=== PATIENT | male | born 1955 | race Caucasian/White ===

== ENCOUNTER 2019-06-16 16:28 | Emergency (ER) | payer MEDICARE, BC, OTHER ==
[2019-06-16 16:59] LABS: Urine Appearance Clear; Urine Bilirubin Negative (Negative); Urine Blood Negative (Negative); Urine Color Yellow; Urine Glucose Negative (Negative); Urine Ketones Negative (Negative); Urine Nitrite Negative (Negative); Urine Protein Negative (Negative); Urine Urobilinogen Negative (Negative)
[2019-06-16 18:58] LABS: ABS Basophils 0.1 10^3/ul (0-0.2); ABS Eosinophils 0.4 10^3/ul (0-0.6); ABS Monocytes 0.9 10^3/ul (0-0.8); ABS Neutrophils 6.5 10^3/ul (1.5-7.7); Eosinophil % 4.1 %; Hematocrit 46 % (42-52); Hemoglobin 15.8 g/dL (14.0-18.0); Lymphocyte % 20.3 %; Mean Corpuscular HGB Conc 35 g/dL (31-36); Mean Corpuscular Hemoglobin 30 pg (27-31); Mean Corpuscular Volume 88 fL (80-94); Platelet Count 260 10^3/uL (150-450); Red Blood Count 5.21 10^6 /uL (4.18-5.48); Red Cell Distribution Width 14 % (10-15); White Blood Count 9.9 10^3/uL (3.5-10.8)
--- NOTE | 2019-06-16 19:02 | ED ---
Neurological HPI - HPI Summary HPI Summary: 63 year old male presents to the ED with pain in his legs starting weeks ago but made worse today. The pain starts in his hips and radiates down to his toes , and is rated a 6/10 in severity. He also reports difficulty with urination, incontinence, paresthesia in his fingertips, a pain that radiates down his forearm that "feels like a razor blade sliding down his arm". Pt denies any fever, chills, erythema of eyes, sore throat, CP, SOB, cough, abdominal pain, N/ V, dysuria, hematuria, edema, rash, or dizziness. He takes 1 percocet a day for the pain. He has a history of spinal surgery, including a neck surgery at [facility] by Dr. Eli and back surgery at [facility] by Dr. Elise. - History of Current Complaint Chief Complaint: EDNeurologicalDeficit Stated Complaint: NUMBNESS PER PT Time Seen by Provider: 06/16/19 18:01 Hx Obtained From: Patient Onset/Duration: Started weeks ago, Still Present, Worse Since - today Timing: Constant Onset Severity: Mild Current Severity: Severe Neurological Deficit Location: RLE, LLE Pain Intensity: 6 Pain Scale Used: 0-10 Numeric Character: Sharp, Paresthesia Aggravating: Nothing Alleviating: Nothing Associated Signs and Symptoms: Positive: Pain. Negative: Dizziness, Nausea/ Vomiting, Fever, Chest Pain - Allergy/Home Medications Allergies/Adverse Reactions: Allergies Allergy/AdvReac Type Severity Reaction Status Date / Time epinephrine Allergy Tachycardia Verified 05/10/19 14:44 Penicillins Allergy Unknown Verified 05/10/19 14:44 Reaction Details PMH/Surg Hx/FS Hx/Imm Hx Endocrine/Hematology History: Reports: Hx Anticoagulant Therapy - coumadin Denies: Hx Diabetes Cardiovascular History: Reports: Other Cardiovascular Problems/Disorders - AFIB Denies: Hx Hypertension, Hx Pacemaker/ICD Respiratory History: Denies: Hx Asthma Comment Only: Other Respiratory Problems/Disorders - hx of chest trauma History: Denies: Hx Dialysis, Hx Renal Disease Musculoskeletal History: Reports: Hx Back Problems Sensory History: Reports: Hx Contacts or Glasses Denies: Hx Cataracts, Hx Hearing Aid Opthamlomology History: Reports: Hx Contacts or Glasses Denies: Hx Cataracts Neurological History: Reports: Other Neuro Impairments/Disorders - multiple sclerosis, PAIN CLINIC PATIENT Psychiatric History: Reports: Hx Depression Denies: Hx Panic Disorder - Surgical History Surgery Procedure, Year, and Place: right knee arthroplasty, cholestectomy, carpal tunnel release- r hand x1, left hand x2, ulnar release left elbow, corpectomy,. CSP - fusion c3-7. L1-2 LAMINECTOMY 10/28/16; 10/2017- Hx Anesthesia Reactions: No Infectious Disease History: No Infectious Disease History: Denies: Traveled Outside the [place] in Last 30 Days - Family History Known Family History: Negative: Diabetes - Social History Alcohol Use: Occasionally Hx Substance Use: No Substance Use Type: Reports: None Substance Use Comment - Amount & Last Used: rare use of Percocet prescribed over 6 months ago Hx Tobacco Use: Yes Smoking Status (MU): Current Some Day Smoker Type: Cigars Amount Used/How Often: an occassional cigar, rare Length of Time of Smoking/Using Tobacco: 12 yrs Have You Smoked in the Last Year: No Review of Systems Negative: Fever, Chills Negative: Erythema Negative: Sore Throat Negative: Chest Pain Negative: Shortness Of Breath, Cough Negative: Abdominal Pain, Vomiting, Nausea Positive: incontinence, other - Difficulty urinating. Negative: dysuria, hematuria Positive: Myalgia - Lower extremities. Negative: Edema Negative: Rash Neurological: Negative - Negative Dizziness Positive: Paresthesia All Other Systems Reviewed And Are Negative: Yes Physical Exam - Summary Physical Exam Summary: Constitutional: Well-developed, Well-nourished, Alert. (-) Distressed Skin: Warm, Dry HENT: Normocephalic; Atraumatic Eyes: Conjunctiva normal Neck: Musculoskeletal ROM normal neck. (-) JVD, (-) Stridor, (-) Tracheal deviation Cardio: Rhythm regular, rate normal, Heart sounds normal; Intact distal pulses; The pedal pulses are 2+ and symmetric. Radial pulses are 2+ and symmetric. (-) Murmur Pulmonary/Chest wall: Effort normal. (-) Respiratory distress, (-) Wheezes, (-) Rales Abd: Soft. (-) Tenderness, (-) Distension, (-) Guarding, (-) Rebound Musculoskeletal: (-) Edema Lymph: (-) Cervical adenopathy Neuro: Alert, Oriented x3, Strength normal, Cranial nerves II-XII are grossly intact. (-) Dysmetria, (-) Nystagmus, (-) Ataxia by finger to nose testing, (-) Sensory deficit. GCS: 15. Psych: Mood and affect Normal Triage Information Reviewed: Yes Vital Signs On Initial Exam: Initial Vitals Temp Pulse Resp BP Pulse Ox 97.7 F 55 17 136/88 100 06/16/19 16:29 06/16/19 16:29 06/16/19 16:29 06/16/19 16:29 06/16/19 16:29 Vital Signs Reviewed: Yes - Caesar Coma Scale Best Eye Response: 4 - Spontaneous Best Motor Response: 6 - Obeys Commands Best Verbal Response: 5 - Oriented Coma Scale Total: 15 Procedures - Sedation Patient Received Moderate/Deep Sedation with Procedure: No Diagnostics - Vital Signs Vital Signs Temp Pulse Resp BP Pulse Ox 06/16/19 18:10 52 98 06/16/19 16:29 97.7 F 55 17 136/88 100 - Laboratory Lab Results: Lab Results 06/16/19 Range/Units 16:39 Urine Color Yellow Urine Appearance Clear Urine pH 6.0 (5-9) Ur Specific [place] 1.020 (1.010-1.030) Urine Protein Negative (Negative) Urine Ketones Negative (Negative) Urine Blood Negative (Negative) Urine Nitrate Negative (Negative) Urine Bilirubin Negative (Negative) Urine Urobilinogen Negative (Negative) Ur Leukocyte Esterase Negative (Negative) Urine Glucose Negative (Negative) Result Diagrams: 06/16/19 18:40 06/16/19 18:40 Lab Statement: Any lab studies that have been ordered have been reviewed, and results considered in the medical decision making process. - EKG 181 Cardiac Rate: Bradycardia - 52 bpm EKG Rhythm: Sinus Bradycardia Summary of EKG Findings: EKG at 1819 shows sinus bradycardia at a rate of 52 bpm. No STEMI. Re-Evaluation - Re-Evaluation First Eval Re-Evaluation Time: 19:20 Change: Unchanged Comment: Following consult with Dr. Quesada, we discussed plan. Course/Dx - Course Course Of Treatment: 63 year old male presents to the ED with pain in his legs starting weeks ago but made worse today. The pain starts in his hips and radiates down to his toes, and is rated a 6/10 in severity. He also reports difficulty with urination, incontinence, paresthesia in his fingertips, a pain that radiates down his forearm that "feels like a razor blade sliding down his arm". Pt denies any fever, chills, erythema of eyes, sore throat, CP, SOB, cough , abdominal pain, N/V, dysuria, hematuria, edema, rash, or dizziness. He takes 1 percocet a day for the pain. He has a history of spinal surgery, including a neck surgery at [facility] by Dr. Eli and back surgery at [facility] by Dr. Elise. Normal neuro exam, but unable to elicit deep tendon reflexes, which is likely secondary to MS. EKG at 1819 shows sinus bradycardia at a rate of 52 bpm. No STEMI. Lab work is unremarkble. UA obtained and negative for infection. The fellow at [facility] will ask the resident to send over operative notes via fax. An incomplete report via the spine resident has been received. We are seeking further information about what has been put into his body. Due to his difficulty with initiating urination, there is consideration for cauda equina versus multiple sclerosis flare-up. I spoke with Dr. Quesada and Lucius Leblanc NP, from neurological services who have been involved in the decision making. The nurse practitioner from spine services, who states that they have provided all records that they have been able to find, including those concerning the implant. I spoke with Dr. Sotelo concerning the MRI safety of the patient over the last 10 months with recent MRI. Since we are unable to obtain correct and sufficient records, the benefits outweigh the risks for moving forward with the MRI. Dx is 60 minutes CCT. The patient is a sign-out from Dr. Yo Stanley MD , to Dr. Tone Adams MD, at change of shift at 2200 on 06/16/2019, pending Brain, Cervical, Thoracic, and Lumbar Spine MRIs and disposition. - Diagnoses Provider Diagnoses: Paresthesias, Urinary retention, Multiple sclerosis - Physician Notifications Discussed Care Of Patient With: Homar Quesada - neurology Time Discussed With Above Provider: 19:19 Instructed by Provider To: Other - I have spoken with Dr. Quesada and Lucius Leblanc NP, from neurology, who are aware of the pt's case and have been working with me during the decision making. I have attempted to obtain medical records from [facility] without success. At 2200, I discussed the pt's case with Dr. Sotelo, radiology, concerning the MRI safety of the pt, and the benefits outweigh the risks for obtaining MRI at this time. - Critical Care Time Critical Care Time: 30-74 min - 60 minutes Discharge ED - Sign-Out/Discharge Documenting (check all that apply): Sign-Out Patient Signing out patient TO: Tone Adams - Patient is a sign-out to Dr. Tone Adams MD, at 2200 on 06/16/2019, pending MRIs and disposition. - Discharge Plan Condition: Stable Disposition: HOME Patient Education Materials: Multiple Sclerosis (DC) Referrals: Ki Mckeon MD [Medical Doctor] - As Soon As Possible - Billing Disposition and Condition Condition: STABLE Disposition: Home - Attestation Statements Document Initiated by Scribe: Yes Documenting Scribe: Antonio Desai Provider For Whom Lor is Documenting (Include Credential): Yo Stanley MD Scribe Attestation: Antonio Lu, scribed for Yo Stanley MD on 06/27/19 at 2128. Scribe Documentation Reviewed: Yes Provider Attestation: The documentation as recorded by the scribeAntonio accurately reflects the service I personally performed and the decisions made by Yo byrnes MD Status of Scribe Document: Viewed
[2019-06-16 19:17] LABS: Albumin/Globulin Ratio 1.7 (1-3); Calcium 8.8 mg/dL (8.6-10.3); EGFR African American 80.4 (>60); EGFR Non-African American 66.5 (>60); Globulin 2.4 g/dL (2-4); Magnesium 2.1 mg/dL (1.9-2.7); Total Bilirubin 0.4 mg/dL (0.2-1.0); Total Protein 6.4 g/dL (6.4-8.9)
[2019-06-16 19:32] LABS: TSH (Thyroid Stimulating Horm) 0.79 mcIU/mL (0.34-5.60)
[2019-06-16] MEDS ORDERED: Gadoteridol* (CONTRAST) 279.3 MG/ML 10 ML IV ONE (23:28)
--- NOTE | 2019-06-16 23:30 | ED ---
Progress - Progress Note Progress Note: This pt is a sign out to Dr. Adams from Dr. Stanley at 2200 06/16/19 pending a C/ T/L spine MRI interpretations, a consult with Dr. Quesada from neurology and a disposition. - Results/Orders Results/Orders: Thoracic spine MRI: 1. no evidence for Multiple Sclerosis. 2. The thoracic spine demonstrates mild degenerative changes at multiple levels. No canal stenosis or nerve root compression. 3. Chronic T10-T11 anterior wedging. ED physician has reviewed this report. Lumbar spine MRI: 1. Postsurgical granulation tissue versus epidural fibrosis at L1-L2, L3-L4, and L4-L5 unchanged compared to prior study. 2. Moderate multilevel thoracic spondylopathy post L2 and L4 laminectomies. Unchanged T12-L1 disc protrusion and L1-L2 disc extrusion with new interval L5-S1 free fragment deviating without compressing the right S1 nerve root. 3. Increased postsurgical scarring bilateral paraspinal muscles at L4-L5. ED physician has reviewed this report. Cervical spine MRI: 1. 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 No abnormal enhancement to suggest active demyelination. 2. Moderate multilevel cervical spondylopathy post anterior fusion of C4-C7. Associated canal stenosis at C3-C4 and C5-C6. ED physician has reviewed this report. Brain MRI: Stable findings of multiple sclerosis. No evidence of active demyelination. ED physician has reviewed this report. Re-Evaluation - Re-Evaluation First Eval Re-Evaluation Time: 19:20 Change: Unchanged Comment: Following consult with Dr. Quesada, we discussed plan. Course/Dx - Course Course Of Treatment: This pt is a sign out to Dr. Adams from Dr. Stanley at 2200 06/16/19 pending a C/T/L spine MRI interpretations, a consult with Dr. Quesada from neurology and a disposition. He received a Thoracic, Lumbar, Cervical and Brain MRI. There findings have been reviewed and are discussed below: Thoracic spine MRI: 1. no evidence for Multiple Sclerosis. 2. The thoracic spine demonstrates mild degenerative changes at multiple. levels. No canal stenosis or nerve root compression. 3. Chronic T10-T11 anterior wedging. Lumbar spine MRI: 1. Postsurgical granulation tissue versus epidural fibrosis at L1-L2, L3-L4,. and L4-L5 unchanged compared to prior study. 2. Moderate multilevel thoracic spondylopathy post L2 and L4 laminectomies. Unchanged T12-L1 disc protrusion and L1-L2 disc extrusion with new interval. L5 -S1 free fragment deviating without compressing the right S1 nerve root. 3. Increased postsurgical scarring bilateral paraspinal muscles at L4-L5. Cervical spine MRI: 1. 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 No abnormal enhancement to suggest active demyelination. 2. Moderate multilevel cervical spondylopathy post anterior fusion of C4-C7. Associated canal stenosis at C3-C4 and C5-C6. Brain MRI: Stable findings of multiple sclerosis. No evidence of active demyelination. Dr. Quesada, Neurologist, stated that the pt should probably be admitted for a further work-up. The pt stated that he did not want to be admitted and will be discharged home with a Dx of degenerative joint disease of the spine and multiple sclerosis and instructions to follow up with a neurosurgeon in [place] in a week's time. - Diagnoses Provider Diagnoses: Paresthesias, Urinary retention, Multiple sclerosis - Provider Notifications Discussed Care Of Patient With: Homar Quesada Time Discussed With Above Provider: 02:50 Instructed by Provider To: Admit As Inpatient - Pricila Quesada stated that the pt should be admitted. - Critical Care Time Critical Care Time: 30-74 min - 60 minutes Discharge ED - Sign-Out/Discharge Documenting (check all that apply): Patient Departure - discharge , Receiving Sign-Out Receiving patient FROM: Yo Stanley - Discharge Plan Condition: Stable Disposition: HOME Patient Education Materials: Multiple Sclerosis (DC) Referrals: Ki Mckeon MD [Medical Doctor] - As Soon As Possible - Billing Disposition and Condition Condition: STABLE Disposition: Home - Attestation Statements Document Initiated by Lor: Yes Documenting Scribe: Devin Kilgore Provider For Whom Lor is Documenting (Include Credential): Tone Adams MD Scribe Attestation: Devin Lu, scribed for Tone Adams MD on 06/17/19 at 0410. Scribe Documentation Reviewed: Yes Provider Attestation: The documentation as recorded by the Devin de luna accurately reflects the service I personally performed and the decisions made by me, Tone Adams MD Status of Scribe Document: Viewed Procedures - Sedation Patient Received Moderate/Deep Sedation with Procedure: No
[2019-06-17 06:29] VITALS: BP 121/72
== END 2019-06-17 06:22 | disposition home or self-care (01) ==
LOC: ED 16:28
DX: R33.9 Retention of urine, unspecified (principal); R20.2 Paresthesia of skin; G35 Multiple sclerosis; Z79.01 Long term (current) use of anticoagulants; I48.91 Unspecified atrial fibrillation
CPT/HCPCS: 36415; 70553; 72156; 72157; 72158; 80053; 81003; 83605; 83735; 84443; 84484; 85025; 93005; 99284; A9579